=== PATIENT | female | born 1975 ===

== ENCOUNTER 2022-05-18 18:38 | Outpatient (REF) | payer SELFPAY ==
[2022-05-20 09:48] LABS: Hepatitis B Surface Ag Negative (Negative)
[2022-05-21 09:19] LABS: HBs Antibody, Quant 3.1 mIU/mL (See Note); Hepatitis B Surface Ab Negative (See Note)
== END 2022-05-18 18:39 | disposition home or self-care (01) ==
LOC: LBN 18:38
PROVIDERS: Visit Provider Nurse Practitioner Family
DX: Z11.59 Encounter for screening for other viral diseases (principal)
CPT/HCPCS: 86706; 87340